=== PATIENT | female | born 1950 | race Caucasian/White ===

== ENCOUNTER 2018-06-10 10:48 | Inpatient (IN) | payer OTHER ==
[~2018-06-10] VITALS: Ht 165.1 cm; Wt 75.5 kg
[2018-06-10 12:52] LABS: BILIRUBIN TOTAL 0.53 mg/dL (0.20-1.00); CALCIUM 8.1 mg/dL (8.5-10.1); CARBON DIOXIDE 27.5 mmol/L (21-32); CREATININE SERUM 2.7 mg/dL (0.6-1.0); TOTAL PROTEIN, SERUM 6.7 g/dL (6.4-8.2)
[2018-06-10 12:55] LABS: ALBUMIN 1.3 g/dL (3.4-5.0)
[2018-06-10 13:11] LABS: PLATELET COUNT 474 x10^3mcL (130-400); RED CELL DISTRIBUTION WIDTH 20.7 % (11.5-14.5)
[2018-06-10 13:42] LABS: BAND NEUTROPHIL 11 % (0-10); BASOPHIL 0 % (0-2); METAMYELOCTE 2 % (0-2); MONOCYTE 8 % (0-7); SEGMENTED NEUTROPHILS 78 % (37-75)
[2018-06-10 13:43] LABS: PLATELET MORPHOLOGY PLATELETS INCREASED; rbc morphology (normal/abnorm) ABNORMAL (NORMAL)
[2018-06-10] MEDS ORDERED: JUVEN PACKET1 EACH PO (15:11)
[2018-06-10] MEDS ORDERED: PHARMASSURE VI500 MG GT (15:12)
[2018-06-10] MEDS ORDERED: LEVOTHYROXINE0.15 M2 GT (15:12)
[2018-06-10] MEDS ORDERED: NEPHRO-VITE VITA1 EA GT (15:13)
[2018-06-10] MEDS ORDERED: PREDNISONE20 MG GT (15:13)
[2018-06-10] MEDS ORDERED: NOVOLIN N100 U/ML SQ (15:13)
[2018-06-10] MEDS ORDERED: LANSOPRAZOLE30 M2 GT (15:14)
[2018-06-10] MEDS ORDERED: NATURE'S BLEND F1 MG GT (15:14)
[2018-06-10] MEDS ORDERED: ACIDOPHILUS1 EAC2 GT (15:15)
[2018-06-10] MEDS ORDERED: FLUDROCORTISON0.1 MG GT (15:15)
[2018-06-10] MEDS ORDERED: REG5 GT (15:17)
[2018-06-10] MEDS ORDERED: NOVI SQ (15:17)
[2018-06-10] MEDS ORDERED: SENNA8.6 M2 GT (15:18)
[2018-06-10] MEDS ORDERED: MIDODRINE HCL10 MG GT (15:18)
[2018-06-10] MEDS ORDERED: LOPERAMIDE HCL2 M1 GT (15:19)
[2018-06-10] MEDS ORDERED: BENADRYL ALLERG25 M1 GT (15:19)
[2018-06-10] MEDS ORDERED: LACTULOSE10 GM/152 GT (15:19)
[2018-06-10] MEDS ORDERED: COLACE100 MG GT (15:20)
[2018-06-10] MEDS ORDERED: DUL10S PR (15:20)
[2018-06-10] MEDS ORDERED: NORCO1 TA2 GT (15:21)
[2018-06-10] MEDS ORDERED: APAP325 MG GT (15:21)
[2018-06-10 16:19] VITALS: BP 123/53
[2018-06-10 17:35] VITALS: BP 123/53
[2018-06-10 17:44] LABS: PLATELET COUNT 449 x10^3mcL (130-400); RED CELL DISTRIBUTION WIDTH 21.2 % (11.5-14.5)
[2018-06-10 18:01] LABS: BASOPHIL 0 % (0-2); MONOCYTE 1 % (0-7); SEGMENTED NEUTROPHILS 98 % (37-75); rbc morphology (normal/abnorm) ABNORMAL (NORMAL)
[2018-06-10 18:02] LABS: PLATELET MORPHOLOGY PLATELETS NORMAL
[2018-06-10 19:25] VITALS: BP 125/40
[2018-06-10 23:10] VITALS: BP 115/48
[2018-06-11 03:28] VITALS: BP 113/49
[2018-06-11 05:12] LABS: CALCIUM 7.5 mg/dL (8.5-10.1); CARBON DIOXIDE 28.6 mmol/L (21-32); CREATININE SERUM 2.7 mg/dL (0.6-1.0); MAGNESIUM 2.1 mg/dL (1.8-2.4); PHOSPHOROUS 1.9 mg/dL (2.5-4.9); POTASSIUM SERUM 3.7 mmol/L (3.5-5.1)
[2018-06-11 05:17] LABS: PLATELET COUNT 378 x10^3mcL (130-400)
[2018-06-11 05:19] LABS: RED CELL DISTRIBUTION WIDTH 20.9 % (11.5-14.5)
[2018-06-11 05:52] LABS: BAND NEUTROPHIL 14 % (0-10); BASOPHIL 0 % (0-2); MONOCYTE 4 % (0-7); SEGMENTED NEUTROPHILS 81 % (37-75)
[2018-06-11 05:54] LABS: PLATELET MORPHOLOGY PLATELETS NORMAL; rbc morphology (normal/abnorm) ABNORMAL (NORMAL); tear drop cell (dacryocyte) 1+
[2018-06-11 07:42] VITALS: BP 126/38
[2018-06-11 11:40] VITALS: BP 112/32
[2018-06-11 15:40] VITALS: BP 115/38
[2018-06-11 19:00] VITALS: BP 100/59
[2018-06-11 23:10] VITALS: BP 98/37
[2018-06-12 03:10] VITALS: BP 119/41
[2018-06-12 05:58] LABS: PLATELET COUNT 301 x10^3mcL (130-400)
[2018-06-12 06:11] LABS: CALCIUM 7.5 mg/dL (8.5-10.1); CREATININE SERUM 2.1 mg/dL (0.6-1.0); MAGNESIUM 1.9 mg/dL (1.8-2.4); PHOSPHOROUS 1.8 mg/dL (2.5-4.9); POTASSIUM SERUM 3.2 mmol/L (3.5-5.1)
[2018-06-12 06:20] LABS: RED CELL DISTRIBUTION WIDTH 20.9 % (11.5-14.5)
[2018-06-12 07:45] VITALS: BP 114/37
[2018-06-12 08:41] LABS: BAND NEUTROPHIL 15 % (0-10); BASOPHIL 0 % (0-2); METAMYELOCTE 1 % (0-2); MONOCYTE 4 % (0-7); MYELOCYTE 1 % (0-2); SEGMENTED NEUTROPHILS 75 % (37-75); rbc morphology (normal/abnorm) ABNORMAL (NORMAL)
[2018-06-12 08:42] LABS: target cell (codocyte) 1+
[2018-06-12 08:44] LABS: PLATELET MORPHOLOGY PLATELETS NORMAL
[2018-06-12 11:40] VITALS: BP 119/32
[2018-06-12 14:37] VITALS: Ht 165.1 cm; Wt 75.5 kg
[2018-06-12 15:15] VITALS: BP 117/38
[2018-06-12 20:31] VITALS: BP 115/54
[2018-06-12 23:15] VITALS: BP 124/41
[2018-06-13 03:43] VITALS: BP 145/50
[2018-06-13 05:18] LABS: PLATELET COUNT 287 x10^3mcL (130-400)
[2018-06-13 05:35] LABS: RED CELL DISTRIBUTION WIDTH 18.6 % (11.5-14.5)
[2018-06-13 05:40] LABS: CALCIUM 7.3 mg/dL (8.5-10.1); CARBON DIOXIDE 25.3 mmol/L (21-32); CREATININE SERUM 2.2 mg/dL (0.6-1.0); MAGNESIUM 1.7 mg/dL (1.8-2.4); PHOSPHOROUS 3.7 mg/dL (2.5-4.9); POTASSIUM SERUM 4.1 mmol/L (3.5-5.1)
[2018-06-13 05:48] LABS: BAND NEUTROPHIL 4 % (0-10); BASOPHIL 0 % (0-2); MONOCYTE 3 % (0-7); SEGMENTED NEUTROPHILS 88 % (37-75)
[2018-06-13 05:50] LABS: PLATELET MORPHOLOGY PLATELETS NORMAL; rbc morphology (normal/abnorm) ABNORMAL (NORMAL)
[2018-06-13 07:29] VITALS: BP 114/95
[2018-06-13 11:13] VITALS: BP 102/50
[2018-06-13 15:36] VITALS: BP 108/69
[2018-06-13 19:35] VITALS: BP 126/35
[2018-06-13 23:53] VITALS: BP 107/47
[2018-06-14 03:58] VITALS: BP 110/47
[2018-06-14 04:54] LABS: CALCIUM 7.3 mg/dL (8.5-10.1); CARBON DIOXIDE 24.9 mmol/L (21-32); CREATININE SERUM 2.1 mg/dL (0.6-1.0); MAGNESIUM 1.9 mg/dL (1.8-2.4); POTASSIUM SERUM 3.9 mmol/L (3.5-5.1)
[2018-06-14 05:07] LABS: PLATELET COUNT 267 x10^3mcL (130-400)
[2018-06-14 05:31] LABS: MONOCYTE 3 % (0-7); SEGMENTED NEUTROPHILS 87 % (37-75)
[2018-06-14 05:33] LABS: BAND NEUTROPHIL 6 % (0-10)
[2018-06-14 05:38] LABS: rbc morphology (normal/abnorm) ABNORMAL (NORMAL)
[2018-06-14 05:39] LABS: PLATELET MORPHOLOGY PLT CLUMPS SEEN; tear drop cell (dacryocyte) 1+
[2018-06-14 07:07] VITALS: BP 128/35
[2018-06-14 11:48] VITALS: BP 89/41
[2018-06-14 15:41] VITALS: BP 59/22
[2018-06-14 20:48] VITALS: BP 61/26
== END 2018-06-15 00:24 | disposition expired | DRG 853 ==
LOC: ED 10:48 → IC 14:25
PROVIDERS: Emergency Medicine; Family Medicine; Internal Medicine
PROC: 05H533Z Insertion of Infusion Device into Right Subclavian Vein, Percutaneous Approach (ICD-10-PCS; principal; 2018-06-10)
PROC: 04HK33Z Insertion of Infusion Device into Right Femoral Artery, Percutaneous Approach (ICD-10-PCS; 2018-06-10)
PROC: 0JB70ZZ Excision of Back Subcutaneous Tissue and Fascia, Open Approach (ICD-10-PCS; 2018-06-13)
PROC: 0JBM0ZZ Excision of Left Upper Leg Subcutaneous Tissue and Fascia, Open Approach (ICD-10-PCS; 2018-06-13)
PROC: 0KBP0ZZ Excision of Left Hip Muscle, Open Approach (ICD-10-PCS; 2018-06-13)
PROC: 0JHM3XZ Insertion of Tunneled Vascular Access Device into Left Upper Leg Subcutaneous Tissue and Fascia, Percutaneous Approach (ICD-10-PCS; 2018-06-13)
PROC: 06HN33Z Insertion of Infusion Device into Left Femoral Vein, Percutaneous Approach (ICD-10-PCS; 2018-06-13)
PROC: B54CZZA Ultrasonography of Left Lower Extremity Veins, Guidance (ICD-10-PCS; 2018-06-13)
DX: A41.02 Sepsis due to Methicillin resistant Staphylococcus aureus (principal); L89.154 Pressure ulcer of sacral region, stage 4; N18.6 End stage renal disease; M72.6 Necrotizing fasciitis; I21.4 Non-ST elevation (NSTEMI) myocardial infarction; G93.41 Metabolic encephalopathy; E43 Unspecified severe protein-calorie malnutrition; R65.21 Severe sepsis with septic shock; J69.0 Pneumonitis due to inhalation of food and vomit; R53.2 Functional quadriplegia; J96.01 Acute respiratory failure with hypoxia; N17.0 Acute kidney failure with tubular necrosis; L89.624 Pressure ulcer of left heel, stage 4; L89.614 Pressure ulcer of right heel, stage 4; L89.894 Pressure ulcer of other site, stage 4; I12.0 Hypertensive chronic kidney disease with stage 5 chronic kidney disease or end stage renal disease; D68.69 Other thrombophilia; A04.72 Enterocolitis due to Clostridium difficile, not specified as recurrent; E02 Subclinical iodine-deficiency hypothyroidism; D63.1 Anemia in chronic kidney disease; E11.22 Type 2 diabetes mellitus with diabetic chronic kidney disease; I25.10 Atherosclerotic heart disease of native coronary artery without angina pectoris; Z51.5 Encounter for palliative care; Z66 Do not resuscitate; Z93.1 Gastrostomy status; Z95.0 Presence of cardiac pacemaker; Z95.2 Presence of prosthetic heart valve; Z68.27 Body mass index [BMI] 27.0-27.9, adult; Z95.1 Presence of aortocoronary bypass graft; Z79.01 Long term (current) use of anticoagulants
CPT/HCPCS: 36556; 36600; 82962; J0744; J0885-EC; J1170; J1642; J1644; J2001; J2020; J2185; J2270; J2405; J2543; J3010; J3475; J3490; J7030; J7040; J7050; J7620; P9016; Q0092; Q0163